=== PATIENT | female | born 1975 | race Caucasian/White ===

== ENCOUNTER → 2021-05-21 15:01 | Outpatient (BNVA) | payer OTHER, SELFPAY | PROVIDERS: PCP Internal Medicine Hematology & Oncology; Visit Provider Nurse Practitioner Family | DX: Z13.89 Encounter for screening for other disorder (principal) ==

== ENCOUNTER 2022-12-07 15:16 | Outpatient (AMB) | payer OTHER, SELFPAY ==
--- NOTE | 2022-12-07 15:21 | MHC.OFFVIS ---
Intake Vital Signs 12/07/22 15:28 Height 5 ft Weight 123 lb BMI 24.0 BP 98/74 Blood Pressure Location Rt brachial Position Sitting Intake Visit Reasons: follow up-lvm Intake Note: Patient presents for follow up. Patient states it's speratic last week was horrendous, I think it's stress that brings it on. Allergies tioconazole [From Monistat 1 (tioconazole)] Allergy (Severe, Verified 12/07/22 15:29) Unknown Medication List - Last Reconciled 12/07/22 by JO ANN Lu bupropion HCl 300 mg PO DAILY rimegepant (Nurtec ODT) 75 mg PO Q OTHER DAY PRN 30 days HPI HPI Comments History of Present Illness Details 47--yr-old female presents for f/u visit. Pt denies any significant interval medical changes. Pt reports taht her migraine attacks vary- usually less than 15 days per month. She has a migraine w/ visual aura about every other month- sees little lights- like seeing the enrgy around her. Can be triggered by stress, barometric wether changes. Nurtec has been very helpful, as long as she takes this at the 1st sign. Rizatriptan was not very helpful. Wonders about retrying Sumatriptan as adjunct to Nurtec. She also wonders about trying Botox for her neck- can be tight and often r/t the migraine attacks. She is wondering about rationale for not using estrogen OCP in female's w/ migraine w/ aura. Her [employer] will not prescribe any estrogen based OCP or depo-provera. He did offer her a progesterone only pill- but she was hesitant to try it as was told it was not as effective. Her is not interested in a vasectomy at this time. [facility] Medical History delivery due to maternal disorder Social History Alcohol intake: current Alcohol intake frequency: holidays/special occasions only Alcohol type: other Patient Tobacco Use Status: Never used Tobacco Review of Systems Const All systems reviewed & are unremarkable except as noted in HPI and below Physical Exam Vital Signs: Last Vital Signs BP 98/74 12/07/22 15:28 BMI result Body Mass Index 24.0 Const General: cooperative and no acute distress Orientation/consciousness: patient oriented x3 HEENT Head: Yes normocephalic Resp Effort & Inspection: normal respiratory effort and able to speak in complete sentences Neuro General: patient oriented x3, gait normal and CN's II-XI intact bilaterally Cognition (Neuro): normal cognition Motor exam (neuro): 5/5 motor strength present throughout Psych Appearance: grossly normal Mental Status: mental status grossly normal Speech and movement: Normal speech and movement present Affect: normal affect Attitude: cooperative Thought process: Normal thought process present Thought content: Normal thought content present Insight: Good insight present (Psych) Judgement: Good judgement present (Psych) Assessment & Plan Assessment & Plan (1) Migraine with aura: Comment: episodic Code(s): G43.109 - Migraine with aura, not intractable, without status migrainosus (2) Cervicalgia: Code(s): M54.2 - Cervicalgia Plan Reviewed rational for concern using estrogen containing OCP in female w/ migraine w/ aura over the age of 35- specifically small but statistically significant increased risk for stroke based on historic literature. It would be reasonable to try the progresterone only pill, however if not tolerated, pt could consider micro dosed estrogen OCP as pt does not have any other irsk factors for stroke at this time. For acute migraine treatment: Continue Nurtec ODT 75mg at onset of migraine. Stop rizatripatn ineffective. Retry Sumatriptan prn, may adjunct w/ Nurtec. Previous acute trials: sumatriptan- not fully effective. Rizatriptan- ineffective. For migraine prevention treatment: Magnesium 400 mg q.h.s. prn Stopped riboflavin- was ineffective. For cervicalgia: Discussed pt is not currently a candidate for Botox for chronic migraine. She does receive cosmetic Botox- she could discuss adding occipital or trapezius injection sites to her current Botox regimen- if her Botox provider feels comfortable doing this. Monitor clinically. Consider imaging if worsens. f/u in 6 months or sooner prn. Medications: New sumatriptan succinate (0.5 - 1 x 100 mg) 50 - 100 mg orally at onset of headache, may repeat in 2 hrs PRN; max 2 tabs per day or 4 tabs/week 30 days 12 tabs 6RF migraine headache Coding Level of Care Code Est Pt Level 4 (03023) Diagnoses Migraine with aura G43.109 Cervicalgia M54.2
[2022-12-07 15:28] VITALS: BP 98/74; BMI 24.0
== END 2022-12-07 16:08 | disposition home or self-care (01) ==
PROVIDERS: PCP Internal Medicine; Visit Provider Nurse Practitioner Family
DX: G43.109 Migraine with aura, not intractable, without status migrainosus (principal); M54.2 Cervicalgia
CPT/HCPCS: 99214

== ENCOUNTER → 2022-12-07 15:16 | Outpatient (BNVA) | payer OTHER, SELFPAY | PROVIDERS: PCP Internal Medicine; Visit Provider Nurse Practitioner Family ==

== ENCOUNTER 2023-06-14 14:32 | Outpatient (AMB) | payer OTHER, SELFPAY ==
--- NOTE | 2023-06-14 14:49 | A.OFFVIS_ITS ---
Vital Signs 06/14/23 14:53 Height 5 ft Weight 124 lb 4 oz BMI 24.3 BP 100/60 Blood Pressure Location Rt brachial Position Sitting Pulse 74 Pulse Source Pulse Oximeter Pulse Oximetry (%) 99 Oxygen Delivery Method Room Air Intake Visit Reasons: Follow up - Confirmed Intake Note: Patient presents for f/u. Allergies tioconazole [From Monistat 1 (tioconazole)] Allergy (Severe, Verified 06/14/23 14:52) Unknown Medication List - Last Reconciled 06/14/23 by JO ANN Lu bupropion HCl XL 300 mg PO DAILY rimegepant (Nurtec ODT) 75 mg PO Q OTHER DAY PRN 30 days sumatriptan succinate 50 - 100 mg orally at onset of headache, may repeat in 2 hrs PRN; max 2 tabs per day or 4 tabs/week 30 days HPI Comments Details: 47-yr-old female presents for f/u visit. Pt denies any significant interval medical changes. Pt reports she had an increase in headaches during this February. She is not sure what triggered. She was not working d/t the winter break. Maybe triggered by participating in february- her typical alcohol intake is 1-2 drinks on /Tue. Otherwise, she thinks maybe it was the weather change. Since February, she has had a migraine/headache 1 per week or so. The Nurtec is very helpful. Uses the Sumatriptan for more severe headache. Her has agreed to have a vasectomy. So she opted to not use OCP. [facility] Medical History delivery due to maternal disorder Social History Alcohol intake: current Alcohol intake frequency: holidays/special occasions only Alcohol type: other Patient Tobacco Use Status: Never used Tobacco Physical Exam Vital Signs: Last Vital Signs Pulse 74 06/14/23 14:53 BP 100/60 06/14/23 14:53 Pulse Ox 99 06/14/23 14:53 Oxygen Delivery Method Room Air 06/14/23 14:53 BMI result Body Mass Index 24.3 Const General: cooperative and no acute distress Orientation/consciousness: patient oriented x3 Resp Effort & Inspection: normal respiratory effort and able to speak in complete sentences Neuro General: patient oriented x3 Cranial nerves: Yes CN's II-XII intact bilaterally Cognition (Neuro): normal cognition Psych Appearance: grossly normal Mental Status: mental status grossly normal Speech and movement: Normal speech and movement present Affect: normal affect Attitude: cooperative Assessment & Plan Assessment & Plan (1) Migraine with aura: Comment: episodic Code(s): G43.109 - Migraine with aura, not intractable, without status migrainosus Category: Medical Plan For acute migraine treatment: Continue Nurtec ODT 75mg at onset of migraine. Continue Sumatriptan prn, may adjunct w/ Nurtec. Previous acute trials: Sumatriptan- not fully effective on its own. Rizatriptan- ineffective. ? For migraine prevention treatment: Magnesium 400 mg q.h.s. prn Stopped riboflavin- was ineffective. ? For cervicalgia: Monitor clinically. Consider imaging if worsens. ? f/u in 12 months or sooner prn. Medications: Refilled rimegepant (Nurtec ODT) 75 mg PO Q OTHER DAY PRN 16 tabs 6RF migraine headache 30 days sumatriptan succinate 50 - 100 mg orally at onset of headache, may repeat in 2 hrs PRN; max 2 tabs per day or 4 tabs/week 12 tabs 6RF migraine headache 30 days Coding Level of Care Code Est Pt Level 3 (90620) Diagnoses Migraine with aura G43.109
[2023-06-14 14:53] VITALS: BP 100/60; PULSE 74; O2SAT 99; BMI 24.3
== END 2023-06-14 15:34 | disposition home or self-care (01) ==
PROVIDERS: PCP Internal Medicine; Visit Provider Nurse Practitioner Family
DX: G43.109 Migraine with aura, not intractable, without status migrainosus (principal)
CPT/HCPCS: 99213

== ENCOUNTER → 2023-06-14 14:32 | Outpatient (BNVA) | payer OTHER, SELFPAY | PROVIDERS: PCP Internal Medicine; Visit Provider Nurse Practitioner Family ==

== ENCOUNTER 2024-06-14 13:58 | Outpatient (AMB) | payer OTHER, SELFPAY ==
--- NOTE | 2024-06-14 14:02 | MHC.OFFVIS ---
Vital Signs 06/14/24 14:05 Height 5 ft Weight 127 lb BMI 24.8 BP 90/62 Blood Pressure Location Rt brachial Position Sitting Pulse 90 Pulse Source Pulse Oximeter Pulse Oximetry (%) 97 Oxygen Delivery Method Room Air Intake Visit Reasons: 1 year F/U Intake Note: Patient presents 1 year follow up for migraines. [employer] Required: No Accompanied by: Self / Same As Patient Allergies tioconazole [From Monistat 1 (tioconazole)] Allergy (Severe, Verified 06/14/24 14:07) Unknown Medication List - Last Reconciled 06/14/24 by JO ANN Lu bupropion HCl XL 300 mg PO DAILY rimegepant (Nurtec ODT) 75 mg PO DAILY PRN 30 days sumatriptan succinate 50 - 100 mg orally at onset of headache, may repeat in 2 hrs PRN; max 2 tabs per day or 4 tabs/week 30 days HPI Comments Details: 48-yr-old female presents for f/u visit of migraine. Pt denies any significant interval medical changes. Pt reports she had an increase in headaches in March, which has returned to baseline.. Overall, migraines continue to Alexandru flow, but typically about once a week. She has had a daily headache this past week, which she attributes to seasonal allergies. Typical triggers include weather change. Patient denies headache triggers secondary to flying. Though, typically requires a Motrin PM after arriving to her destination, as she does not sleep well on flights. The Nurtec is very helpful. Uses the Sumatriptan for more severe headache. Her had a vasectomy, so she opted to not use OCP. She notes she is having perimenopausal symptoms, having her menstrual cycle every 3 weeks. However, she is not interested in having another IUD, as these have been very painful to remove. 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 [facility] Medical History delivery due to maternal disorder Social History Alcohol intake: current Alcohol intake frequency: holidays/special occasions only Alcohol type: other Patient Tobacco Use Status: Never used Tobacco Physical Exam Vital Signs: Last Vital Signs Pulse 90 06/14/24 14:05 BP 90/62 06/14/24 14:05 Pulse Ox 97 06/14/24 14:05 Oxygen Delivery Method Room Air 06/14/24 14:05 BMI result Body Mass Index 24.8 Const General: cooperative and no acute distress Orientation/consciousness: patient oriented x3 Resp Effort & Inspection: normal respiratory effort and able to speak in complete sentences Neuro General: patient oriented x3 Cranial nerves: Yes CN's II-XII intact bilaterally Cognition (Neuro): normal cognition Psych Appearance: grossly normal Mental Status: mental status grossly normal Speech and movement: Normal speech and movement present Affect: normal affect Attitude: cooperative Assessment & Plan Assessment & Plan (1) Migraine with aura: Comment: episodic Code(s): G43.109 - Migraine with aura, not intractable, without status migrainosus Category: Medical Plan For acute migraine treatment: Continue Nurtec ODT 75mg sublingually daily at onset of migraine. Continue Sumatriptan 50-100 mg at onset of migraine-may repeat in 2 hours with max of 200 mg s per day, may adjunct w/ Nurtec. Previous acute trials: Sumatriptan- not fully effective on its own. Rizatriptan- ineffective. ? For migraine prevention treatment: Magnesium 400 mg q.h.s. prn Stopped riboflavin- was ineffective. ? For cervicalgia: Monitor clinically. Consider imaging if worsens. ? f/u in 12 months or sooner prn. Medications: Changed From rimegepant (Nurtec ODT) 75 mg PO Q OTHER DAY 30 days PRN 16 tabs 6RF migraine headache To rimegepant (Nurtec ODT) 75 mg PO DAILY 30 days PRN 16 tabs 6RF migraine headache Refilled sumatriptan succinate (0.5 - 1 x 100 mg) 50 - 100 mg orally at onset of headache, may repeat in 2 hrs PRN; max 2 tabs per day or 4 tabs/week 30 days 9 tabs 6RF migraine headache Coding Level of Care Code Est Pt Level 3 (16145) Diagnoses Migraine with aura G43.109
[2024-06-14 14:05] VITALS: BP 90/62; PULSE 90; O2SAT 97; BMI 24.8
== END 2024-06-14 14:49 | disposition home or self-care (01) ==
LOC: HO.HSMS 13:59
PROVIDERS: PCP Internal Medicine; Visit Provider Nurse Practitioner Family
DX: G43.109 Migraine with aura, not intractable, without status migrainosus (principal)
CPT/HCPCS: 99213